=== PATIENT | female | born 1970 | race Hispanic/Latino ===

== ENCOUNTER 2024-10-21 16:00 | Emergency (ER) | payer SELFPAY ==
[~2024-10-21] VITALS: Ht 162.6 cm; Wt 105.8 kg
[2024-10-21] MEDS ORDERED: LISINOPRIL-HCT1 EAC2 (16:45)
[2024-10-21] MEDS ORDERED: REGLAN10 MG PO (16:53)
[2024-10-21 17:03] VITALS: PULSE 76; RESP 16; TEMP 99.3; O2SAT 96
== END 2024-10-21 17:03 | disposition home or self-care (01) ==
LOC: FSED 16:40
DX: R51.9 Headache, unspecified (principal); I10 Essential (primary) hypertension; R11.0 Nausea
CPT/HCPCS: 99283